=== PATIENT | female | born 1995 | race Caucasian/White ===

== ENCOUNTER → 2023-05-19 | Day surgery (SDC) | payer MEDICAID ==
[~2023-05-19] VITALS: Ht 165.1 cm; Wt 73.9 kg
[~2023-05-19] MED LIST: BUSPIRONE10 MG PO; FAMOTIDINE 10 MG TAB PO SCH; HEARTBURN RELIE10 MG PO; IUD IU ONE; LEVONORGESTREL IU ONE; Lactated Ringer's Solution 1,000 ML IV ONE; Lactated Ringer's Solution 1,000 ML IV SCH; Lidocaine Hydrochloride 2% 10 ML AMP IM ONE; Midazolam Hydrochloride 2 MG/2 ML VIAL IV ONE; Midazolam Hydrochloride 2 MG/2 ML VIAL ONE; PROPOFOL 200 MG/20 ML VIAL IV ONE; SILVER NITRATE APPLICATOR 1 EACH APP T ONE; TRAZODONE50 MG PO; VENT7GM INH; busPIRone Hydrochloride 10 MG TAB PO SCH
[2023-05-19 10:58] VITALS: BP 115/83
[2023-05-19 11:37] VITALS: BP 110/68
[2023-05-19 11:52] VITALS: BP 131/89
[2023-05-19 12:07] VITALS: BP 118/70
[2023-05-19 12:14] VITALS: BP 120/72
== END | disposition home or self-care (01) ==
LOC: SDC 02:36
PROVIDERS: ATTEND Obstetrics & Gynecology
DX: N91.5 Oligomenorrhea, unspecified (principal); N94.6 Dysmenorrhea, unspecified; F32.A Depression, unspecified; F41.9 Anxiety disorder, unspecified; J45.909 Unspecified asthma, uncomplicated; K21.9 Gastro-esophageal reflux disease without esophagitis; Z79.899 Other long term (current) drug therapy; Z88.2 Allergy status to sulfonamides; Z88.8 Allergy status to other drugs, medicaments and biological substances

== ENCOUNTER 2023-07-12 14:21 | Emergency (ER) | payer MEDICAID ==
[~2023-07-12] VITALS: Ht 167.6 cm; Wt 65.8 kg
[~2023-07-12 14:21] MED LIST changes: -FAMOTIDINE 10 MG TAB PO SCH; -IUD IU ONE; -LEVONORGESTREL IU ONE; -Lactated Ringer's Solution 1,000 ML IV ONE; -Lactated Ringer's Solution 1,000 ML IV SCH; -Lidocaine Hydrochloride 2% 10 ML AMP IM ONE; -Midazolam Hydrochloride 2 MG/2 ML VIAL IV ONE; -Midazolam Hydrochloride 2 MG/2 ML VIAL ONE; -PROPOFOL 200 MG/20 ML VIAL IV ONE; -SILVER NITRATE APPLICATOR 1 EACH APP T ONE; -busPIRone Hydrochloride 10 MG TAB PO SCH
[2023-07-12] MEDS ORDERED: FAMOTIDINE 50 ML IV ONE (14:50)
[2023-07-12] MEDS ORDERED: Ketorolac Tromethamine 15 MG/ML VIAL IV ONE (14:50)
[2023-07-12] MEDS ORDERED: Ondansetron Hydrochloride 4 MG/2 ML VIAL IV ONE (14:50)
[2023-07-12] MEDS ORDERED: SODIUM CHLORIDE 0.9% 1,000 ML IV ONE (14:50)
[2023-07-12 15:04] LABS: BASO % 0.6 % (0.0-1.0); HEMATOCRIT 43.1 % (37.0-47.0); LYMPH # 0.6 10*3/uL (1.3-4.4); LYMPH % 17.5 % (27.0-41.0); MEAN CELL VOLUME 96.4 fl (81.0-99.0); MEAN CORPUSCULAR HGB 32.9 pg (27.0-31.0); MEAN CORPUSCULAR HGB CONC 34.1 g/dl (33.0-37.0); MEAN PLATELET VOLUME 9.9 fl (9.6-12.3); MONO # 0.3 10*3/uL (0.1-1.0); MONO % 9.5 % (3.0-9.0); NEUT # 2.2 10*3/uL (2.3-7.9); NEUT % 70.8 % (47.0-73.0); PLATELET COUNT AUTOMATED 188 10*3/uL (130-400); RED BLOOD COUNT 4.47 10*6/uL (4.10-5.10); RED CELL DISTRI WIDTH 14.5 % (0-14.5); WHITE BLOOD COUNT 3.2 10*3/uL (4.8-10.8)
[2023-07-12 15:27] LABS: ALKALINE PHOSPHATASE 113 U/L (46-116); BUN 9 mg/dl (9-23); CHLORIDE 97 mmol/L (98-107); LIPASE 60 U/L (12-53); POTASSIUM 2.8 mmol/L (3.4-5.1); SGPT/ALT 88 U/L (5-49)
[2023-07-12 15:30] LABS: BILIRUBIN Negative (Negative); BLOOD Trace-Lysed (Negative); CLARITY Cloudy (Clear); COLOR Dark Yellow (Yellow); GLUCOSE Negative (Negative); KETONE Trace (Negative); LEUKO ESTERASE 1+ (Negative); NITRITE Negative (Negative)
[2023-07-12 15:45] LABS: BACTERIA 2+; EPITHELIAL CELLS TNTC; RBC 0-2 rbc/hpf (0-2)
[2023-07-12] MEDS ORDERED: Ceftriaxone Sodium 1 GM/10 ML SYR IV ONE (15:50)
[2023-07-12] MEDS ORDERED: POTASSIUM CHLORIDE 20 MEQ TAB PO ONE (15:50)
[2023-07-12] MEDS ORDERED: SEPTDS PO (15:57)
[2023-07-12] MEDS ORDERED: TRAMADOL HCL50 MG PO (15:57)
[2023-07-12] MEDS ORDERED: PEPCID20 MG PO (15:57)
[2023-07-12] MEDS ORDERED: ONDANSETRON4 MG SL (15:57)
[2023-07-12] MEDS ORDERED: POTASSIUM CHLO20 ME3 PO (15:57)
[2023-07-12] MEDS ORDERED: CIPRO500 MG PO (16:59)
== END 2023-07-12 16:41 | disposition home or self-care (01) ==
LOC: ED 14:21
PROVIDERS: Emergency Medicine
DX: N39.0 Urinary tract infection, site not specified (principal); E87.6 Hypokalemia; R11.2 Nausea with vomiting, unspecified; R19.7 Diarrhea, unspecified; J45.909 Unspecified asthma, uncomplicated; K21.9 Gastro-esophageal reflux disease without esophagitis; F41.9 Anxiety disorder, unspecified; Z88.2 Allergy status to sulfonamides; Z98.890 Other specified postprocedural states

== ENCOUNTER 2023-08-11 06:45 | Emergency (ER) | payer MEDICAID ==
[~2023-08-11] VITALS: Ht 167.6 cm; Wt 65.8 kg
[~2023-08-11 06:45] MED LIST changes: +CIPRO500 MG PO; +ONDANSETRON4 MG SL; +PEPCID20 MG PO; +POTASSIUM CHLO20 ME3 PO; +SEPTDS PO; +TRAMADOL HCL50 MG PO
[2023-08-11] MEDS ORDERED: Ondansetron Hydrochloride 4 MG/2 ML VIAL IV ONE (07:30)
[2023-08-11] MEDS ORDERED: SODIUM CHLORIDE 0.9% 1,000 ML IV ONE (07:30)
[2023-08-11] MEDS ORDERED: IOHEXOL 300 MG/ML 100 ML VIAL IV ONE (07:40)
[2023-08-11 07:52] LABS: BASO % 0.6 % (0.0-1.0); EOS # 0.1 10*3/uL (0.0-0.4); EOS % 1.3 % (1.0-4.0); HEMATOCRIT 42.3 % (37.0-47.0); LYMPH # 0.8 10*3/uL (1.3-4.4); LYMPH % 10.7 % (27.0-41.0); MEAN CELL VOLUME 98.1 fl (81.0-99.0); MEAN CORPUSCULAR HGB 32.7 pg (27.0-31.0); MEAN CORPUSCULAR HGB CONC 33.3 g/dl (33.0-37.0); MEAN PLATELET VOLUME 9.1 fl (9.6-12.3); MONO # 0.4 10*3/uL (0.1-1.0); MONO % 5.7 % (3.0-9.0); NEUT # 5.7 10*3/uL (2.3-7.9); NEUT % 81.6 % (47.0-73.0); PLATELET COUNT AUTOMATED 198 10*3/uL (130-400); RED BLOOD COUNT 4.31 10*6/uL (4.10-5.10); RED CELL DISTRI WIDTH 15.2 % (0-14.5)
[2023-08-11 08:02] LABS: ACT PARTIAL THROMBO TIME 24.8 SECONDS (20.0-32.1)
[2023-08-11 08:14] LABS: ALKALINE PHOSPHATASE 124 U/L (46-116); BUN 8 mg/dl (9-23); CHLORIDE 96 mmol/L (98-107); LIPASE 49 U/L (12-53); POTASSIUM 3.6 mmol/L (3.4-5.1); SGPT/ALT 48 U/L (5-49); TOTAL PROTEIN 7.9 gm/dL (6.0-8.0)
[2023-08-11 08:15] LABS: BETA-HCG, QUANT < 3.0 mIU/mL (3-10); ETHYL ALCOHOL < 3.0 mg/dl (<3)
[2023-08-11 08:27] LABS: BILIRUBIN Negative (Negative); BLOOD Negative (Negative); CLARITY Clear (Clear); COLOR Dark Yellow (Yellow); GLUCOSE Negative (Negative); KETONE 4+ (Negative); LEUKO ESTERASE Trace (Negative); NITRITE Negative (Negative); PH 6.5 (4.5-8.0); SPECIFIC GRAVITY >= 1.030 (1.001-1.030)
[2023-08-11 08:34] LABS: URINE AMPHETAMINES Negative (1000ng/ml); URINE BARBITURATES Negative (200ng/ml); URINE BENZODIAZEPINES Negative (200ng/ml); URINE CANNABINOIDS (THC) Negative (50ng/ml); URINE COCAINE Negative (300ng/ml); URINE METHADONE Negative (300ng/ml); URINE OPIATES Negative (300ng/ml); URINE PHENCYCLIDINE Negative (25ng/ml)
[2023-08-11] MEDS ORDERED: MG-AL HYDROXIDE/SIMETICONE 30 ML UDC PO STA (08:42)
[2023-08-11] MEDS ORDERED: Dicyclomine Hydrochloride 20 MG/10 ML OSYR PO STA (08:42)
[2023-08-11] MEDS ORDERED: Lidocaine Hydrochloride 15 ML UDC PO STA (08:42)
[2023-08-11 09:11] LABS: BACTERIA 3+; EPITHELIAL CELLS 16-20
[2023-08-11] MEDS ORDERED: Ceftriaxone Sodium 1 GM/10 ML SYR IV ONE (09:55)
[2023-08-11] MEDS ORDERED: CIPRO500 MG PO (12:19)
[2023-08-11] MEDS ORDERED: NYST SUSP PO (12:30)
[2023-08-11] MEDS ORDERED: Ondansetron Hydrochloride 4 MG TAB SL ONE (12:50)
[2023-08-12 08:11] LABS: HBSAG Negative (Negative); HEP B CORE AB, IGM Negative (Negative); HEPATITIS C ANTIBODY Non Reactive (Non Reactive)
[2023-08-13] MEDS ORDERED: CARAFATE1 G1 PO ×2 (12:45→12:49)
[2023-08-13] MEDS ORDERED: PROTONIX IV40 MG PO (12:45)
[2023-08-13] MEDS ORDERED: PROTONIX40 MG PO (12:49)
== END 2023-08-11 12:24 | disposition home or self-care (01) ==
LOC: ED 06:45
PROVIDERS: Internal Medicine
DX: N39.0 Urinary tract infection, site not specified (principal); N30.90 Cystitis, unspecified without hematuria; R11.2 Nausea with vomiting, unspecified; R13.10 Dysphagia, unspecified; J45.909 Unspecified asthma, uncomplicated; K21.9 Gastro-esophageal reflux disease without esophagitis; F41.9 Anxiety disorder, unspecified; Z88.2 Allergy status to sulfonamides; Z98.890 Other specified postprocedural states; Z87.891 Personal history of nicotine dependence

== ENCOUNTER → 2023-08-12 | Outpatient (CLI) | payer MEDICAID ==
[~2023-08-12] MED LIST changes: +CARAFATE1 G1 PO; +NYST SUSP PO; +PROTONIX IV40 MG PO; +PROTONIX40 MG PO
== END | disposition home or self-care (01) ==
LOC: US 08:30
PROVIDERS: ATTEND Family Medicine
DX: K76.0 Fatty (change of) liver, not elsewhere classified (principal); R74.01 Elevation of levels of liver transaminase levels

== ENCOUNTER → 2023-08-13 | Day surgery (SDC) | payer MEDICAID ==
[~2023-08-13] VITALS: Ht 167.6 cm; Wt 65.8 kg
[~2023-08-13] MED LIST changes: +FLUCONAZOLE 100 ML IV ONE; +Ketamine Hydrochloride 500 MG/10 ML VIAL IV ONE; +Midazolam Hydrochloride 2 MG/2 ML VIAL IV ONE; +PROPOFOL 200 MG/20 ML VIAL IV ONE; +Pantoprazole Sodium 40 MG VIAL IV ONE; +fentaNYL CITRATE 100 MCG/2 ML VIAL IV ONE
[2023-08-13 11:30] VITALS: BP 132/71
[2023-08-13 12:39] VITALS: BP 133/92
[2023-08-13 12:55] VITALS: BP 117/89
== END | disposition home or self-care (01) ==
LOC: SDC 10:36
PROVIDERS: ATTEND Surgery
DX: R11.2 Nausea with vomiting, unspecified (principal); R13.10 Dysphagia, unspecified; K29.50 Unspecified chronic gastritis without bleeding; K31.89 Other diseases of stomach and duodenum; K21.00 Gastro-esophageal reflux disease with esophagitis, without bleeding; K29.80 Duodenitis without bleeding; K22.10 Ulcer of esophagus without bleeding; K44.9 Diaphragmatic hernia without obstruction or gangrene; F17.200 Nicotine dependence, unspecified, uncomplicated; Z79.899 Other long term (current) drug therapy; Z98.890 Other specified postprocedural states